=== PATIENT | female | born 1995 | race Caucasian/White ===

== ENCOUNTER 2017-06-12 22:58 | Emergency (ER) | payer BC ==
[~2017-06-12] VITALS: Ht 167.6 cm; Wt 125.0 kg
[2017-06-12 23:02] VITALS: BP 136/80; TEMP 98.8
[2017-06-13 00:15] VITALS: PULSE 104
[2017-06-13] MEDS ORDERED: TAMIFLU 75MG75 MG PO (00:30)
== END 2017-06-13 00:15 | disposition home or self-care (01) ==
LOC: COL.ER 22:58
DX: J11.1 Influenza due to unidentified influenza virus with other respiratory manifestations (principal)